=== PATIENT | female | born 1980 | race Caucasian/White ===

== ENCOUNTER 2019-09-10 19:22 | Emergency (ER) | payer BC ==
[~2019-09-10] VITALS: Ht 157.5 cm; Wt 51.7 kg
--- NOTE | 2019-09-10 19:48 | NUR ---
PT CAME TO ER TO BED 8 C/O HEADACHE SINCE THIS MORNING OF TODAY (09/10/2019). PATIENT STATES THAT AT 1930 SHE TOOK ABOUT 10 EXCEDRIN PILLS FOR THE HEADACHES. DENIES SI. PATIENT STATES SHE TOOK 10 BECAUSE SHE WAS STRESSED OUT. AAOX4. BREATHING EVENLY AND UNLABORED. CONNECTED TO DIRECTOR OF HEAD START.
--- NOTE | 2019-09-10 19:50 | NUR ---
SPOKE WITH CECI FROM POISON CONTROL. ADVISED TO: ADMINISTER CHARCOAL NOW CHECK ASPIRIN, TYLENOL, CHEMISTRY, EKG RECHECK TYLENOL AT 2300, IF >150, ADMINISTER MUCOMYST IF ASPIRIN IS MEASURABLE, REPEAT LEVEL Q2-3HR UNTIL TWO LEVELS TRENDING DOWN DR. FIELDS MADE AWARE OF RECOMMENDATIONS
[2019-09-10] MEDS ORDERED: CHARCOAL/SORBITOL SOLUTION 25 G/120 ML TUBE ONE (19:52)
[2019-09-10] MEDS ORDERED: ONDANSETRON 4 MG TAB.RAPDIS ONE (19:55)
--- NOTE | 2019-09-10 19:56 | NUR ---
ADMITTING SUPERVISOR AT BEDSIDE FOR BLOOD DRAWN
[2019-09-10] MEDS ORDERED: ONDANSETRON 4 MG TAB.RAPDIS SL ONE (20:00)
[2019-09-10] MEDS ORDERED: ACTIVATED CHARCOAL 25 GM/120 ML TUBE PO ONE (20:00)
[2019-09-10 20:17] LABS: HEMOGLOBIN 13.1 g/dL (11.5-14.8); WHITE BLOOD COUNT (AUTO) 5.7 K/uL (4.3-11.0)
[2019-09-10 20:22] LABS: BASOPHILS % (AUTO) 0.4 % (0.0-2.0); EOSINOPHILS % (AUTO) 2.3 % (0.0-6.0); HEMATOCRIT 39 % (33-45); LYMPHOCYTES # (AUTO) 2.1 /CMM (0.8-4.8); LYMPHOCYTES % (AUTO) 37.5 % (20.0-44.0); MEAN CORPUSCULAR HGB CONC 34 g/dl (31.0-36.0); MEAN CORPUSCULAR VOLUME 90 fL (82-100); MONOCYTES # (AUTO) 0.3 /CMM (0.1-1.30); MONOCYTES % (AUTO) 5.2 % (2.0-12.0); NEUTROPHILS # (AUTO) 3.1 /CMM (1.8-8.9); NEUTROPHILS % (AUTO) 54.6 % (43.0-81.0); PLATELET COUNT (AUTO) 271 /CMM (150-450); RED BLOOD CELL COUNT(AUTO) 4.31 MIL/uL (4.0-5.2)
--- NOTE | 2019-09-10 20:24 | NUR ---
URINE COLLECTED AND SENT TO LAB FOR SPECIMEN
[2019-09-10 20:37] LABS: APPEARANCE,URINE CLEAR (CLEAR); BILIRUBIN,URINE NEGATIVE (NEGATIVE); BLOOD, URINE NEGATIVE Ery/uL (NEGATIVE); COLOR,URINE YELLOW (YELLOW); KETONES,URINE NEGATIVE (NEGATIVE); LEUKOCYTE ESTERASE ,URINE NEGATIVE (NEGATIVE); NITRITE, URINE NEGATIVE (NEGATIVE); PROTEIN,URINE NEGATIVE (NEGATIVE); UGLUCOSE NEGATIVE (NEGATIVE); UROBILINOGEN,URINE 0.2 EU/dL (0.2)
[2019-09-10 21:00] LABS: ACETAMINOPHEN 5 ug/ml (10-30); ALANINE AMINOTRANSFERASE 24 U/L (12-78); ALBUMIN 3.7 g/dL (3.4-5.0); ALCOHOL, BLOOD < 3 mg/dL (0-0); ALKALINE PHOSPHATASE 53 U/L (46-116); ASPARTATE AMINOTRANSFERASE 11 U/L (15-37); BILIRUBIN,DIRECT 0.1 mg/dL (0.0-0.2); BILIRUBIN,TOTAL 0.2 mg/dL (0.2-1.0); CALCIUM, SERUM 8.6 mg/dL (8.5-10.1); CARBON DIOXIDE 28 mmol/L (21-32); CHLORIDE 107 mmol/L (98-107); CREATININE 0.9 mg/dL (0.6-1.3); GLUCOSE 127 mg/dL (74-106); POTASSIUM 3.7 mmol/L (3.5-5.1); SODIUM SERUM 143 mmol/L (136-145); TOTAL PROTEIN, SERUM 6.6 g/dL (6.4-8.2); UREA NITROGEN, BLOOD 15 mg/dL (7-18)
[2019-09-10 21:04] LABS: SALICYLATE 2.1 mg/dL (2.8-20.0)
[2019-09-10] MEDS ORDERED: CHARCOAL/SORBITOL SOLUTION 25 G/120 ML TUBE PO ONE (22:00)
[2019-09-10 23:47] LABS: SALICYLATE 2.6 mg/dL (2.8-20.0)
[2019-09-11 00:20] VITALS: BP 109/76
--- NOTE | 2019-09-11 00:20 | NUR ---
Patient discharged to home in stable condition. Written and verbal after care instructions given. Patient verbalizes understanding of instruction.
== END 2019-09-11 00:21 | disposition home or self-care (01) ==
LOC: ER 19:28
DX: T39.1X1A Poisoning by 4-Aminophenol derivatives, accidental (unintentional), initial encounter (principal); R94.31 Abnormal electrocardiogram [ECG] [EKG]; Z90.89 Acquired absence of other organs; Z98.890 Other specified postprocedural states; Y92.89 Other specified places as the place of occurrence of the external cause
CPT/HCPCS: 36415; 80048; 80076; 80305; 80307; 80329 ×2; 81001; 84702; 85025; 85730; 93005; 99284; G0480 ×2; Q0162; 81000-TC